=== PATIENT | female | born 1945 | race Caucasian/White ===

== ENCOUNTER → 2017-01-15 | Outpatient (REF) | payer MEDICARE ==
[~2017-01-15] MED LIST: ASPI325T PO; CARD120C3 PO; LISI30TA4 PO
== END ==
LOC: M LAB REF 14:53
PROVIDERS: ATTEND Nurse Practitioner Family
DX: R50.9 Fever, unspecified (principal)

== ENCOUNTER → 2017-12-29 | Outpatient (REF) | payer MEDICARE ==
[2017-12-29 20:09] LABS: C REACTIVE PROTEIN QUANTITATIV 2.02 MG/DL (0.00-0.30)
== END ==
LOC: M LAB REF 17:31
DX: L03.90 Cellulitis, unspecified (principal)
CPT/HCPCS: 86140

== ENCOUNTER → 2022-01-20 | Outpatient (CLI) | payer MEDICARE, BC ==
[~2022-01-20] MED LIST changes: +ASPI-1 PO; -ASPI325T PO
== END ==
LOC: M WUC 09:06
PROVIDERS: ATTEND Registered Nurse
DX: M77.32 Calcaneal spur, left foot (principal)

== ENCOUNTER → 2022-05-27 | Outpatient (CLI) | payer MEDICARE, BC | LOC: M WUC 14:23 | PROVIDERS: ATTEND Registered Nurse | DX: R05.1 Acute cough (principal) ==

== ENCOUNTER → 2023-05-15 | Outpatient (REF) | payer MEDICARE, BC ==
[2023-05-15 17:51] LABS: C REACTIVE PROTEIN QUANTITATIV 5.9 MG/DL (<1.0)
[2023-05-15 17:57] LABS: URIC ACID 12.2 MG/DL (3.1-7.8)
== END ==
LOC: M LAB REF 16:32
PROVIDERS: ATTEND Internal Medicine
DX: M10.9 Gout, unspecified (principal)

== ENCOUNTER → 2023-06-25 | Outpatient (REF) | payer MEDICARE, BC ==
[2023-06-25 13:03] LABS: URIC ACID 12.7 MG/DL (3.1-7.8)
[2023-06-25 13:04] LABS: C REACTIVE PROTEIN QUANTITATIV 0.5 MG/DL (<1.0)
== END ==
LOC: M LAB REF 11:36
PROVIDERS: ATTEND Internal Medicine
DX: M10.9 Gout, unspecified (principal); M25.561 Pain in right knee

== ENCOUNTER → 2023-06-30 | Outpatient (REF) | payer MEDICARE, BC | LOC: M LAB REF 14:42 | PROVIDERS: ATTEND Internal Medicine | DX: M10.9 Gout, unspecified (principal) ==

== ENCOUNTER → 2023-07-13 | Outpatient (REF) | payer MEDICARE | LOC: M LAB REF 16:27 | PROVIDERS: ATTEND Internal Medicine | DX: M10.9 Gout, unspecified (principal) ==

== ENCOUNTER → 2023-08-03 | Outpatient (REF) | payer MEDICARE | LOC: M LAB REF 16:33 | PROVIDERS: ATTEND Internal Medicine | DX: M10.9 Gout, unspecified (principal) ==

== ENCOUNTER → 2023-09-22 | Outpatient (REF) | payer MEDICARE | LOC: M LAB REF 12:27 | PROVIDERS: ATTEND Internal Medicine | DX: M10.9 Gout, unspecified (principal) ==

== ENCOUNTER → 2023-12-29 | Outpatient (REF) | payer MEDICARE, BC | LOC: M LAB REF 16:43 | PROVIDERS: ATTEND Internal Medicine | DX: M10.9 Gout, unspecified (principal) ==

== ENCOUNTER → 2024-07-20 | Outpatient (REF) | payer MEDICARE | LOC: M LAB REF 13:36 | PROVIDERS: ATTEND Internal Medicine | DX: M10.9 Gout, unspecified (principal) ==

== ENCOUNTER → 2024-10-31 | Outpatient (REF) | payer MEDICARE | LOC: M LAB REF 16:23 | PROVIDERS: ATTEND Internal Medicine | DX: M10.9 Gout, unspecified (principal) ==

== ENCOUNTER → 2025-02-13 | Outpatient (REF) | payer MEDICARE | LOC: M LAB REF 12:07 | PROVIDERS: ATTEND Internal Medicine | DX: M10.9 Gout, unspecified (principal) ==

== ENCOUNTER → 2025-05-17 | Outpatient (REF) | payer MEDICARE | LOC: M LAB REF 14:27 | PROVIDERS: ATTEND Internal Medicine | DX: M10.9 Gout, unspecified (principal) ==